=== PATIENT | female | born 2000 | race Hispanic/Latino ===

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

== ENCOUNTER 2024-08-31 12:10 | Emergency (ER) | payer OTHER, SELFPAY ==
--- OUTSIDE RECORDS SUMMARY | 2024-08-31 12:17 | XMS REPORT | Continuity of Care Document ---
Author Name Unknown Address [address] [facility] [address] [place] [address] [facility] [place] Address [address] [facility] [address] [place] [address] Care Team Providers Care Napper Runner Name Role Phone Karri Lanza Primary Care Physician [phone] DEVI ARDON Attending Clinician UnavailDevi Maciel DO Attending Clinician [phone] Aung Osorio Attending Clinician [phone] AUNG DEL ANGEL Attending Clinician Unavaila sonia Doctor Unassigned, [place] Attending Clinician U KARLA Conklin Attending Clinician Unavailable Karla Bautista MD Attending Clinician [phone] DEVI ARDON Admitting Clinician Unavailab AUNG Roberts Admitting Clinician Sukumara ble Payers Payer Name Policy Type Policy Number Effective Date Expirati on Date Source [facility] [id number] 2020 00:00:00 Problems Condition Name Condition Details Condition Category Status Onset Date Resolution Date Last Treatment Date Treating Clinician Comments Source No known active problems No known active problems Disease [facility] Allergies, Adverse Reactions, Alerts Allergy Name Allergy Type Status Severity Reaction(s) Onset Date Inactive Date Treating Clinician Comments Source NO KNOWN ALLERGIE S Drug Class Active [facility] Social History Social Habit Start Date Stop Date Quantity Comments Source Exposure to SARS-CoV-2 (event) 2021-08-17 00:00:00 2021-08-27 17:24:00 Unable to assess [facility] Sex Assigned At 2000 00:00:00 2000 00:00:00 [facility] Smoking Status Start Date Stop Date Source Unknown if ever smoked [facility] Medications Ordered Medication Name Filled Medication Name Start Date Stop Date Current Medication? Ordering Clinician Indication Dosage Frequency Signature (SIG) Comments Components Source TAKE 1 TABLET DAILY. 07-22 00:00: 00 Yes 10 Elliot West TAKE 1 TO 2 TABLETS EVERY 6 HOURS NEEDED FOR ANXIETY. 04-26 00:00: 00 08-27 00:00 :00 No Elliot West TAKE 1 TO 2 TABLETS BY MOUTH EVERY 6 HOURS NEEDED FOR ANXIETY 04-24 00:00: 00 Yes Elliot West ESCITALOPRA M 04-24 00:00: 00 Yes Elliot West BROM/PSE/DM SYP 2021-04 00:00: 00 Yes Elliot West TAKE 1 TABLET BY MOUTH DAILY 2021-04 00:00: 00 Yes Elliot West OSELTAMIVIR 2021-04 00:00: 00 Yes 75 Elliot West TOPIRAMATE TAB 50MG 2021-04 00:00: 00 Yes Elliot West ONDANSETRON TAB 4MG ODT 2021-04 00:00: 00 Yes Elliot West TAKE 1 TABLET BY MOUTH DAILY 2021-04 00:00: 00 Yes Elliot West SUMATRIPTAN 25MG TABLETS 2021-04 00:00: 00 Yes Elliot West HYDROXYZ HCL 2021-04 00:00: 00 Yes 10 Elliot West ONDANSETRON TAB 4MG ODT 2021-04 00:00: 00 No DICYCLOMINE TAB 20MG 2021-04 00:00: 00 Yes Elliot West DICYCLOMINE TAB 20MG 2021-04 00:00: 00 No HYDROcodone -acetaminop hen (NORCO 5) 5-325 mg tablet 1 tablet 17 00:30: 00 08-27 23:30 :00 No 1{tbl} 1 tablet, Oral, ONCE, 1 dose, [facility]27/[facility] 370-500 mL) injection 120 mL 06-18 04:45: 00 06-18 03:34 :00 No [id number] 120mL 120 mL, Intravenou s, ONCE, 1 dose, On Fri06/17/21 at 2245, Routine [facility] ketorolac (TORADOL) injection 30 mg 06-18 03:45: 00 06-18 02:48 :00 No 30mg 30 mg, Slow IV Push, ONCE, 1 dose, On Fri06/17/21 at 2145, 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 [facility] dicyclomine 20 mg tablet 06-17 00:00: 00 06-25 04:59 :00 No [id number] 20mg Take 1 tablet by mouth 4 (four) times daily for 7 days. [facility] medroxyPROG ESTERone (PROVERA) 10 mg tablet 410 00:00: 00 07-30 04:59 :00 No [id number] 10mg Take 1 tablet by mouth 3 (three) times daily for 7 days. [facility] Diflucan 150 mg tablet 11-24 00:00: 00 Yes 1mg Elliot West Diflucan 150 mg tablet 11-24 00:00: 00 No 1mg Diflucan 150 mg tablet 05-18 00:00: 00 Yes 1mg Elliot West Diflucan 150 mg tablet 05-18 00:00: 00 No 1mg Xulane 150 mcg-35 mcg/24 hr transdermal patch 05-17 00:00: 00 Yes 1mcg/24 hr Elliot West omeprazole 20 mg tablet,courtney yed release 05-17 00:00: 00 Yes 1mg Elliot West Xulane 150 mcg-35 mcg/24 hr transdermal patch 05-17 00:00: 00 No 1mcg/24 hr omeprazole 20 mg tablet,courtney yed release 05-17 00:00: 00 No 1mg fluconazole 150 mg tablet 2018-04 0 00:00: 00 Yes [id number] Take one tablet now and take the second tablet after 3 days if symptoms persists [facility] prednisone 20 mg tablet 06-18 00:00: 00 Yes 1mg Elliot West loratadine 10 mg tablet 06-18 00:00: 00 Yes 1mg Elliot West amoxicillin 500 mg capsule 06-18 00:00: 00 Yes 1mg Elliot West Bromfed DM 2 mg-30 mg-10 mg/5 mL syrup 06-18 00:00: 00 Yes 10mg/5 mL Elliot West prednisone 20 mg tablet 06-18 00:00: 00 No 1mg loratadine 10 mg tablet 06-18 00:00: 00 No 1mg amoxicillin 500 mg capsule 06-18 00:00: 00 No 1mg Bromfed DM 2 mg-30 mg-10 mg/5 mL syrup 06-18 00:00: 00 No 10mg/5 mL CALCIUM CARBONATE (MAALOX ORAL) 2015-04 04:45: 12 Yes Take by mouth. [facility] CALCIUM CARBONATE (MAALOX ORAL) 2015-04 22:45: 12 Yes Take by mouth. [facility] ranitidine (ZANTAC) 150 mg tablet 2015-04 00:00: 00 Yes 150mg Take 1 tablet by mouth 2 (two) times daily. [facility] proMETHazin e (PHENERGAN) 25 mg tablet 2015-04 00:00: 00 Yes 25mg Take 1 tablet by mouth every 6 (six) hours as needed for Nausea and Vomiting (N/V). [facility] Immunizations Ordered Immunization Name Filled Immunization Name Date Status Comments Source COVID-19, (Pfizer) mRNA, LNP-S, PF, 30 mcg/0.3 mL dose, alysia-sucrose 2021-07-17 00:00:00 Completed (Old) COVID-19, (Pfizer) mRNA, LNP-S, PF, 30 mcg/0.3 mL dose, alysia-sucrose (Old) COVID-19, (Pfizer) mRNA, LNP-S, PF, 30 mcg/0.3 mL dose, alysia-sucrose 2021-07-17 00:00:00 Completed Elliot West HPV9 2016-02-19 00:00:00 Completed HPV9 HPV9 2016-02-19 00:00:00 Completed Elliot West HPV9 2015-07-14 00:00:00 Completed HPV9 HPV9 2015-07-14 00:00:00 Completed Elliot West HPV9 2014-12-07 00:00:00 Completed meningococcal MCV4P 2014-12-07 00:00:00 Completed Tdap 2014-12-07 00:00:00 Completed HPV9 HPV9 2014-12-07 00:00:00 Completed Elliot West meningococcal MCV4P meningococcal MCV4P 00:00:00 Completed Elliot West Tdap Tdap 2014-12-07 00:00:00 Completed Elliot West Influenza, seasonal, inj 2014-01-04 00:00:00 Completed Influenza, seasonal, inj Influenza, seasonal, inj 2014-01-04 00:00:00 Completed Elliot West Influenza, seasonal, inj 2013-02-08 00:00:00 Completed Influenza, seasonal, inj Influenza, seasonal, inj 2013-02-08 00:00:00 Completed Elliot [place] Influenza, seasonal, inj 2010-06-25 00:00:00 Completed Influenza, seasonal, inj Influenza, seasonal, inj 2010-06-25 00:00:00 Completed Elliot West DTaP 2006-06-18 00:00:00 Completed MMR 2006-06-18 00:00:00 Completed IPV 2006-06-18 00:00:00 Completed varicella 2006-06-18 00:00:00 Completed DTaP DTaP 2006-06-18 00:00:00 Completed Elliot West MMR MMR 2006-06-18 00:00:00 Completed Elliot West IPV IPV 2006-06-18 00:00:00 Completed Elliot West varicella varicella 2006-06-18 00:00:00 Completed Elliot West Hep A, ped/adol, 2 dose 2006-02-12 00:00:00 Completed Hep A, ped/adol, 2 dose Hep A, ped/adol, 2 dose 2006-02-12 00:00:00 Completed Elliot West Hep A, ped/adol, 2 dose 2004-09-12 00:00:00 Completed Pneumococcal conjugate P 2004-09-12 00:00:00 Completed Hep A, ped/adol, 2 dose Hep A, ped/adol, 2 dose 2004-09-12 00:00:00 Completed Elliot West Pneumococcal conjugate P Pneumococcal conjugate P 2004-09-12 00:00:00 Completed Elliot Anastasia Brett DTaP 2004-01-10 00:00:00 Completed DTaP DTaP 2004-01-10 00:00:00 Completed Elliot West Hib (PRP-OMP) 2003-08-02 00:00:00 Completed MMR 2003-08-02 00:00:00 Completed varicella 2003-08-02 00:00:00 Completed Hib (PRP-OMP) Hib (PRP-OMP) 2003-08-02 00:00:00 Completed Elliot West MMR MMR 2003-08-02 00:00:00 Completed Elliot West varicella varicella 2003-08-02 00:00:00 Completed Elliot West Hep B, adolescent or ped 2003-01-06 00:00:00 Completed Hib (PRP-OMP) 2003-01-06 00:00:00 Completed DTaP 2003-01-06 00:00:00 Completed DTaP 2003-01-06 00:00:00 Completed Pneumococcal conjugate P 2003-01-06 00:00:00 Completed DTaP 2003-01-06 00:00:00 Completed DTaP 2003-01-06 00:00:00 Completed DTaP 2003-01-06 00:00:00 Completed DTaP 2003-01-06 00:00:00 Completed IPV 2003-01-06 00:00:00 Completed DTaP 2003-01-06 00:00:00 Completed DTaP 2003-01-06 00:00:00 Completed DTaP 2003-01-06 00:00:00 Completed DTaP 2003-01-06 00:00:00 Completed Hep B, adolescent or ped Hep B, adolescent or ped 2003-01-06 00:00:00 Completed Elliot West Hib (PRP-OMP) Hib (PRP-OMP) 2003-01-06 00:00:00 Completed Elliot West DTaP DTaP 2003-01-06 00:00:00 Completed Elliot West Pneumococcal conjugate P Pneumococcal conjugate P 2003-01-06 00:00:00 Completed Elliot West IPV IPV 2003-01-06 00:00:00 Completed Elliot West DTaP 2002 00:00:00 Completed Hib (PRP-OMP) 2002 00:00:00 Completed IPV 2002 00:00:00 Completed DTaP DTaP 2002 00:00:00 Completed Elliot West Hib (PRP-OMP) Hib (PRP-OMP) 2002 00:00:00 Completed Elliot West IPV IPV 2002 00:00:00 Completed Elliot West DTaP 2002 00:00:00 Completed Hep B, adolescent or ped 2002 00:00:00 Completed Hib (PRP-OMP) 2002 00:00:00 Completed Pneumococcal conjugate P 2002 00:00:00 Completed IPV 2002 00:00:00 Completed DTaP DTaP 2002 00:00:00 Completed Elliot Anastasia Brett Hep B, adolescent or ped Hep B, adolescent or ped 2002 00:00:00 Completed Elloit Anastasia Brett Hib (PRP-OMP) Hib (PRP-OMP) 2002 00:00:00 Completed Elliot West Pneumococcal conjugate P Pneumococcal conjugate P 2002 00:00:00 Completed Elliot Anastasia Brett IPV IPV 2002 00:00:00 Completed Elliot West Hep B, adolescent or ped 2002 00:00:00 Completed Hep B, adolescent or ped Hep B, adolescent or ped 2002 00:00:00 Completed Elliot West Vital Signs Vital Name Observation Time Observation Value Comments S ource Heart rate 2021-08-27 22:55:00 96 /min [facility] Respiratory rate 2021-08-27 22:55:00 15 /min [facility] Oxygen saturation in Arterial blood by Pulse oximetry 2021-08-27 22:55:00 96 /min [facility] Systolic blood pressure 2021-08-27 22:28:00 154 mm[Hg] [facility] Diastolic blood pressure 2021-08-27 22:28:00 118 mm[Hg] [facility] Body temperature 2021-08-27 22:28:00 36.28 Rachell [facility] Body height 2021-08-27 22:28:00 142.2 cm [facility] Body weight 2021-08-27 22:28:00 86.637 kg [facility] BMI 2021-08-27 22:28:00 42.82 kg/m2 [facility] Body mass index (BMI) [Percentile] Per age and sex 2021-08-27 22:28:00 98.86 % [facility] Systolic blood pressure 2021-06-18 05:00:00 110 mm[Hg] [facility] Diastolic blood pressure 2021-06-18 05:00:00 80 mm[Hg] [facility] Heart rate 2021-06-18 05:00:00 88 /[facility] Respiratory rate 2021-06-18 05:00:00 15 /min [facility] Oxygen saturation in Arterial blood by Pulse oximetry 2021-06-18 05:00:00 94 /min [facility] Body temperature 2021-06-18 02:01:55 37.83 Rachell [facility] Body height 2021-06-18 01:54:00 142.2 cm [facility] Body weight 2021-06-18 01:54:00 81.194 kg [facility] BMI 2021-06-18 01:54:00 40.13 kg/m2 [facility] Body mass index (BMI) [Percentile] Per age and sex 2021-06-18 01:54:00 98.60 % [facility] Systolic blood pressure 2020-07-22 20:29:00 145 mm[Hg] [facility] Diastolic blood pressure 2020-07-22 20:29:00 94 mm[Hg] [facility] Heart rate 2020-07-22 20:29:00 101 /min [facility] Body temperature 2020-07-22 20:29:00 36.33 Rachell [facility] Respiratory rate 2020-07-22 20:29:00 18 /min [facility] Body weight 2020-07-22 20:29:00 89.359 kg [facility] Oxygen saturation in Arterial blood by Pulse oximetry 2020-07-22 20:29:00 98 /min [facility] Systolic blood pressure 2020-07-22 20:29:00 145 mm[Hg] [facility] Diastolic blood pressure 2020-07-22 20:29:00 94 mm[Hg] [facility] Heart rate 2020-07-22 20:29:00 101 /min [facility] Body temperature 2020-07-22 20:29:00 36.33 Rachell [facility] Respiratory rate 2020-07-22 20:29:00 18 /min [facility] Body weight 2020-07-22 20:29:00 89.359 kg [facility] Oxygen saturation in Arterial blood by Pulse oximetry 2020-07-22 20:29:00 98 /min [facility] Body height 2020-05-25 20:07:00 144.8 cm [facility] Body weight 2020-05-25 20:07:00 92.987 kg [facility] BMI 2020-05-25 20:07:00 44.36 kg/m2 [facility] Body height 2020-05-25 20:07:00 144.8 cm [facility] Body weight 2020-05-25 20:07:00 92.987 kg [facility] BMI 2020-05-25 20:07:00 44.36 kg/m2 [facility] BP Systolic 2024-07-29 08:21:00 125 mm[Hg] Step hen F Brett BP Diastolic 2024-07-29 08:21:00 85 mm[Hg] Zackary phen F Brett Weight Measured 2024-07-29 08:21:00 224.00 pounds Elliot F Brett Height Measured 2024-07-29 08:21:00 56.10 inches Elliot F Brett Body Temperature 2024-07-29 08:21:00 98.00 degrees Elliot F Brett Heart Rate 2024-07-29 08:21:00 90.00 /min Nikkie en F Brett Respiratory Rate 2024-07-29 08:21:00 18.00 /min Elliot F Brett Heart Rate 2024-07-12 09:28:00 105.00 /min Step hen F Brett Respiratory Rate 2024-07-12 09:28:00 18.00 /min Elliot F Brett BP Systolic 2024-07-12 09:28:00 121 mm[Hg] Step hen F Brett BP Diastolic 2024-07-12 09:28:00 89 mm[Hg] Zackary phen F Brett Weight Measured 2024-07-12 09:28:00 218.60 pounds Elliot F Brett Height Measured 2024-07-12 09:28:00 56.10 inches Elliot F Brett Body Temperature 2024-07-12 09:28:00 98.20 degrees Elliot F Brett BP Systolic 2022-02-16 12:34:00 98 mm[Hg] Step hen F Brett BP Diastolic 2022-02-16 12:34:00 77 mm[Hg] Zackary phen F Brett Weight Measured 2022-02-16 12:34:00 195.00 pounds Elliot F Brett Height Measured 2022-02-16 12:34:00 56.10 inches Elliot F Brett Body Temperature 2022-02-16 12:34:00 98.10 degrees Elliot F Brett Heart Rate 2022-02-16 12:34:00 67.00 /min Nikkie en F Brett Respiratory Rate 2022-02-16 12:34:00 17.00 /min Elliot F Brett BP Systolic 2020-11-24 08:18:00 118 mm[Hg] Step hen F Brett BP Diastolic 2020-11-24 08:18:00 81 mm[Hg] Zackary phen F Brett Weight Measured 2020-11-24 08:18:00 195.40 pounds Elliot F Brett Height Measured 2020-11-24 08:18:00 56.10 inches Elliot F Brett Body Temperature 2020-11-24 08:18:00 98.10 degrees Elliot F Brett Heart Rate 2020-11-24 08:18:00 71.00 /min Nikkie en F Brett Respiratory Rate 2020-11-24 08:18:00 Elliot F Brett BP Systolic 2020-06-20 09:05:00 133 mm[Hg] Step hen F Brett BP Diastolic 2020-06-20 09:05:00 97 mm[Hg] Zackary phen F Brett Weight Measured 2020-06-20 09:05:00 198.20 pounds Elliot F Brett Height Measured 2020-06-20 09:05:00 56.00 inches Elliot F Brett Body Temperature 2020-06-20 09:05:00 98.70 degrees Elliot F Brett Heart Rate 2020-06-20 09:05:00 94.00 /min Nikkie en F Brett Respiratory Rate 2020-06-20 09:05:00 Elliot F Brett BP Systolic 2019-11-25 15:25:00 100 mm[Hg] Step hen F Brett BP Diastolic 2019-11-25 15:25:00 62 mm[Hg] Zackary phen F Brett Weight Measured 2019-11-25 15:25:00 202.20 pounds Elliot F Brett Height Measured 2019-11-25 15:25:00 56.00 inches Elliot F Brett Body Temperature 2019-11-25 15:25:00 99.10 degrees Elliot F Brett Heart Rate 2019-11-25 15:25:00 99.00 /min Nikkie en F Brett Respiratory Rate 2019-11-25 15:25:00 Elliot F Brett BP Systolic 2019-05-17 11:53:00 113 mm[Hg] Step hen F Brett BP Diastolic 2019-05-17 11:53:00 76 mm[Hg] Zackary phen F Brett Weight Measured 2019-05-17 11:53:00 199.60 pounds Elliot F Brett Height Measured 2019-05-17 11:53:00 56.00 inches Elliot F Brett Body Temperature 2019-05-17 11:53:00 97.80 degrees Elliot F Brett Heart Rate 2019-05-17 11:53:00 72.00 /min Nikkie en F Brett Respiratory Rate 2019-05-17 11:53:00 17.00 /min Elliot F Brett BP Systolic 2017-12-24 14:46:00 129 mm[Hg] Step hen F Brett BP Diastolic 2017-12-24 14:46:00 91 mm[Hg] Zackary phen F Brett Weight Measured 2017-12-24 14:46:00 Elliot F Brett Height Measured 2017-12-24 14:46:00 Elliot F Brett Body Temperature 2017-12-24 14:46:00 Elliot F Brett Heart Rate 2017-12-24 14:46:00 Nikkie en F Brett Respiratory Rate 2017-12-24 14:46:00 Elliot F Brett BP Systolic 2017-12-24 14:45:00 145 mm[Hg] Step hen F Brett BP Diastolic 2017-12-24 14:45:00 98 mm[Hg] Zackary phen F Brett Weight Measured 2017-12-24 14:45:00 176.00 pounds Elliot F Brett Height Measured 2017-12-24 14:45:00 57.50 inches Elliot F Brett Body Temperature 2017-12-24 14:45:00 98.00 degrees Elliot F Brett Heart Rate 2017-12-24 14:45:00 77.00 /min Nikkie en F Brett Respiratory Rate 2017-12-24 14:45:00 16.00 /min Elliot Anastasia West BP Systolic 2017-01-04 15:34:00 121 mm[Hg] Step hen F Brett BP Diastolic 2017-01-04 15:34:00 87 mm[Hg] Zackary phen F Brett Weight Measured 2017-01-04 15:34:00 188.00 pounds Elliot West Height Measured 2017-01-04 15:34:00 57.00 inches Elliot F Brett Body Temperature 2017-01-04 15:34:00 98.60 degrees Elliot Anastasia West Heart Rate 2017-01-04 15:34:00 84.00 /min Nikkie en F Brett Respiratory Rate 2017-01-04 15:34:00 18.00 /min Elliot F Brett BP Systolic 2016-06-18 13:30:00 Step hen F Brett BP Diastolic 2016-06-18 13:30:00 Zackary phen Anastasia West Weight Measured 2016-06-18 13:30:00 Elliot F Brett Height Measured 2016-06-18 13:30:00 Elliot Anastasia West Body Temperature 2016-06-18 13:30:00 Elliot F Brett Heart Rate 2016-06-18 13:30:00 Nikkie en F Brett Respiratory Rate 2016-06-18 13:30:00 Elliot Anastasia West BP Systolic 2016-06-18 13:22:00 121 mm[Hg] BP Diastolic 2016-06-18 13:22:00 78 mm[Hg] Weight Measured 2016-06-18 13:22:00 175.20 pounds Height Measured 2016-06-18 13:22:00 56.69 inches Body Temperature 2016-06-18 13:22:00 99.40 degrees Heart Rate 2016-06-18 13:22:00 108.00 /min Respiratory Rate 2016-06-18 13:22:00 17.00 /min Procedures Procedure Date / Time Performed Performing Clinicia n Source CT TRAUMA CERVICAL SPINE WO CONTRAST 2021-08-27 23:05:13 Devi Ardon [facility] NOTICE OF PRIVACY PRACTICES 2021-08-27 22:44:15 Doctor Unassigned, [place] [facility] XR CHEST 1 VW 2021-08-27 22:43:34 Devi Ardon [facility] CONSENT/REFUSAL FOR DIAGNOSIS AND TREATMENT 2021-08-27 22:42:41 Doctor Unassigned, [place] [facility] CT ABDOMEN PELVIS W CONTRAST 2021-06-18 03:41:41 Aung Del Angel [facility] POCT TEST 2021-06-18 02:50:00 Erum Del Angel [facility] LIPASE 2021-06-18 02:48:00 [facility] METABOL[facility] (36377) 2021-06-18 02:48:00 Aung Del Angel [facility] CBC WITH DIFF 2021-06-18 02:48:00 Aung Del Angel [facility] COVID-19 (ID NOW RAPID TESTING) 2021-06-18 02:48:00 Aung Del Angel [facility] URINALYSIS 2021-06-18 02:11:00 Devi Ardon Un [facility] NOTICE OF PRIVACY PRACTICES 2021-06-18 01:42:34 Doctor Unassigned, [place] [facility] CONSENT/REFUSAL FOR DIAGNOSIS AND TREATMENT 2021-06-18 01:40:12 Doctor Unassigned, [place] [facility] NOTICE OF PRIVACY PRACTICES 2020-07-22 21:19:31 Doctor Unassigned, [place] [facility] ASSIGNMENT OF BENEFITS 2020-07-22 21:17:22 Docto r Unassigned, [place] [facility] POCT TEST 2020-07-22 20:54:00 Tiki Ardon ra [facility] CONSENT/REFUSAL FOR DIAGNOSIS AND TREATMENT 2020-07-22 20:21:38 Doctor Unassigned, [place] [facility] ASSIGNMENT OF BENEFITS 2020-05-25 20:03:09 Docto r Unassigned, [place] [facility] Plan of Care Planned Activity Planned Date Details Comments Source Goal Plan of Care Note [code = 40748-6] Goal Plan of Care Note [code = 36193-4] Goal Plan of Care Note [code = 23543-3] Goal Plan of Care Note [code = 18697-8] Goal Plan of Care Note [code = 80035-3] Goal Plan of Care Note [code = 63906-8] Goal Plan of Care Note [code = 13512-5] Goal Plan of Care Note [code = 87411-9] Goal Plan of Care Note [code = 85000-4] Goal Plan of Care Note [code = 30080-1] Goal Plan of Care Note [code = 65488-0] Goal Plan of Care Note [code = 18884-1] Goal Plan of Care Note [code = 76078-8] Goal Plan of Care Note [code = 75009-9] Goal Plan of Care Note [code = 98320-0] Goal Plan of Care Note [code = 69627-1] Goal Plan of Care Note [code = 96619-2] Goal Plan of Care Note [code = 35664-9] Goal Plan of Care Note [code = 07890-9] Goal Plan of Care Note [code = 48746-6] Goal Plan of Care Note [code = 82785-9] Goal Plan of Care Note [code = 74554-9] Goal Plan of Care Note [code = 57553-5] Goal Plan of Care Note [code = 07112-5] Goal Plan of Care Note [code = 17919-8] Goal Plan of Care Note [code = 47830-4] Goal Plan of Care Note [code = 22019-6] Goal Plan of Care Note [code = 35755-6] Encounters Start Date/Time End Date/Time Encounter Type Admission Type Attending [facility] Care Department Encounter ID Source 2021-02-11 12:02:45 Emergency [facility] [id number] [facility] 2024-08-03 13:03:47 2024-08-03 13:03:[address] [facility] [id number] Elliot Anastasia Brett 2024-07-29 08:12:11 2024-07-29 08:12:[address] [facility] [id number] Elliot Anastasia Brett 2024-07-29 00:00:00 2024-07-29 00:00:[address] [facility] [id number] Elliot Anastasia Brett 2024-07-12 10:33:35 2024-07-12 10:33:[address] [facility] [id number] Elliot West 2024-07-12 00:00:00 2024-07-12 00:00:[address] [facility] [id number] Elliot West 2022-02-21 13:57:37 2022-02-21 13:57:[address] [facility] [id number] Elliot West 2022-02-16 12:36:14 2022-02-16 12:36:14 Outpatient [facility] [id number] Elliot West 2022-02-16 00:00:00 2022-02-16 00:00:00 Outpatient Visit [id number] 2021-08-27 17:28:00 2021-08-27 18:42:00 Emergency X DEVI ARDON [facility] [[email or web address] ERT [id number] [facility] 2021-08-27 17:28:00 2021-08-27 18:42:00 Emergency Devi Ardon [facility] [id number] [facility] 2021-06-17 20:06:00 2021-06-17 23:30:00 Emergency Aung Del Angel [facility] [id number] [facility] 2021-06-17 20:06:00 2021-06-17 23:30:00 Emergency X AUNG DEL ANGEL [facility] [[email or web address]] ERT [id number] [facility] 2020-07-22 15:43:00 2020-07-22 16:32:00 Emergency Devi Ardon [facility] [id number] 2020-07-22 15:43:00 2020-07-22 16:32:00 Emergency Devi Ardon [facility] [id number] [facility] 2020-07-22 00:00:00 2020-07-22 00:00:00 Orders Only Doctor Unassigned, [place] [facility] [id number] [facility] 2020-07-22 00:00:00 2020-07-22 00:00:00 Orders Only Doctor Unassigned, [facility] 1.2840.114 350.1.13.10 4.2.7.2.686 [id number] [id number] 2020-05-25 14:45:00 2020-05-25 14:45:00 Outpatient R KARLA BAUTISTA [facility] [id number] [facility] 2020-05-25 14:03:35 2020-05-25 14:18:35 Office Visit Karla Bautista [facility] 1.2840.114 350.1.13.10 4.2.7.2.686 [id number] [facility] 2020-05-25 14:03:35 2020-05-25 14:18:35 Office Visit Karla Bautista [facility] 1.2840.114 350.1.13.10 4.2.7.2.686 [id number] 2020-05-25 00:00:00 2020-05-25 00:00:00 Orders Only Doctor Unassigned, [facility] 1.2840.114 350.1.13.10 4.2.7.2.686 [id number] [facility] 2020-05-25 00:00:00 2020-05-25 00:00:00 Letter (Out) Doctor Unassigned, [facility] [id number] 350.1.13.10 4.2.7.2.686 [id number] [facility] Results Test Description Test Time Test Comments Results Result Co mments Source Elliot WestCHLAMYDIA/N. GONORRHOEAE RNA, [id number] 00:00:00* Test Item Value Reference Range Interpretation Comme nts CHLAMYDIA TRACHOMATIS RNA, T MA, UROGENITAL (test code = 26604-8) NOT DETECTED NEISSERIA GONORRHOEAE RNA, T MA, UROGENITAL (test code = 44180-5) NOT DETECTED Elliot WestBV/VAGINITIS PANEL DNA [id number] 00:00:00* Test Item Value Reference Range Interpretation Comme nts TRICHOMONAS: (test code = 6568-0) NOT DETECTED GARDNERELLA: (test code = 6410-5) NOT DETECTED MICHELE: (test code = 30178-3) NOT DETECTED Elliot WestVITAMIN D, 25 [id number] 00:00:00* Test Item Value Reference Range Interpretation Comme [facility] VITAMIN D, 25 OH (test code = 4958) 28 NG/ML Elliot WestVITAMIN D, 25 [id number] 00:00:00* Test Item Value Reference Range Interpretation Comme [facility] VITAMIN D, 25 OH (test code = 4958) 28 NG/ML Elliot WestCOMPREHENSIVE METABOLIC [id number] 00:00:00* Test Item Value Reference Range Interpretation Comme nts GLUCOSE (test code = 2217) 104 MG/DL BUN (test code = 2208) 12 MG/DL CREATININE (test code = 2214) 0.64 MG/DL eGFR (2020 CKD-EPI) (test code = 39306) 130 ML/MIN/1.73 CALC BUN/CREAT (test code = 2235) 19 RATIO SODIUM (test code = 2231) 141 MEQ/L POTASSIUM (test code = 2228) 4.8 MEQ/L CHLORIDE (test code = 2215) 105 MEQ/L CARBON DIOXIDE (test code = 2206) 24 MEQ/L CALCIUM (test code = 2209) 9.7 MG/DL PROTEIN, TOTAL (test code = 2229) 7.0 G/DL ALBUMIN (test code = 2201) 4.6 G/DL CALC GLOBULIN (test code = 2240) 2.4 G/DL CALC A/G RATIO (test code = 2234) 1.9 RATIO BILIRUBIN, TOTAL (test code = 2207) <0.2 MG/DL ALKALINE PHOSPHATASE (test code = 2204) 59 U/L AST (test code = 2218) 31 U/L ALT (test code = 2219) 51 U/L Elliot WestLIPID [id number] 00:00:00* Test Item Value Reference Range Interpretation Comme nts CHOLESTEROL (test code = 2210) 142 MG/DL TRIGLYCERIDES (test code = 2232) 80 MG/DL HDL CHOLESTEROL (test code = 2220) 49 MG/DL CALC LDL CHOL (test code = 2237) 77 MG/DL RISK RATIO LDL/HDL (test cod e = 2238) 1.57 RATIO Elliot WestTSH, THIRD [id number] 00:00:00* Test Item Value Reference Range Interpretation Comme nts TSH, THIRD GENERATION (test code = 2821) 2.110 UIU/ML Elliot WestCOMPREHENSIVE METABOLIC [id number] 00:00:00* Test Item Value Reference Range Interpretation Comme nts GLUCOSE (test code = 2217) 104 MG/DL BUN (test code = 2208) 12 MG/DL CREATININE (test code = 2214) 0.64 MG/DL eGFR (2020 CKD-EPI) (test code = 13598) 130 ML/MIN/1.73 CALC BUN/CREAT (test code = 2235) 19 RATIO SODIUM (test code = 2231) 141 MEQ/L POTASSIUM (test code = 2228) 4.8 MEQ/L CHLORIDE (test code = 2215) 105 MEQ/L CARBON DIOXIDE (test code = 2206) 24 MEQ/L CALCIUM (test code = 2209) 9.7 MG/DL PROTEIN, TOTAL (test code = 2229) 7.0 G/DL ALBUMIN (test code = 2201) 4.6 G/DL CALC GLOBULIN (test code = 2240) 2.4 G/DL CALC A/G RATIO (test code = 2234) 1.9 RATIO BILIRUBIN, TOTAL (test code = 2207) <0.2 MG/DL ALKALINE PHOSPHATASE (test code = 2204) 59 U/L AST (test code = 2218) 31 U/L ALT (test code = 2219) 51 U/L Elliot WestLIPID [id number] 00:00:00* Test Item Value Reference Range Interpretation Comme nts CHOLESTEROL (test code = 2210) 142 MG/DL TRIGLYCERIDES (test code = 2232) 80 MG/DL HDL CHOLESTEROL (test code = 2220) 49 MG/DL CALC LDL CHOL (test code = 2237) 77 MG/DL RISK RATIO LDL/HDL (test cod e = 2238) 1.57 RATIO Elliot WestTSH, THIRD [id number] 00:00:00* Test Item Value Reference Range Interpretation Comme allyn TSH, THIRD GENERATION (test code = 2821) 2.110 UIU/ML Elliot WestHEMOGLOBIN [id number] 00:00:00* Test Item Value Reference Range Interpretation Comme allyn HEMOGLOBIN A1c (test code = 41579) 5.5 % Elliot WestCBC W/AUTO [id number] 00:00:00* Test Item Value Reference Range Interpretation Comme nts WBC (test code = 1001) 8.5 K/UL RBC (test code = 1002) 4.76 M/UL HEMOGLOBIN (test code = 1003) 14.1 G/DL HEMATOCRIT (test code = 1004) 41.8 % MCV (test code = 1005) 87.8 fL MCH (test code = 1006) 29.6 PG MCHC (test code = 1007) 33.7 G/DL RDW (test code = 1038) 12.7 % NEUTROPHILS (test code = 1008) 49.8 % LYMPHOCYTES (test code = 1010) 40.3 % MONOCYTES (test code = 1011) 7.5 % EOSINOPHILS (test code = 1012) 1.8 % BASOPHILS (test code = 1013) 0.4 % IMMATURE GRANULOCYTES (test code = 1036) 0.2 % NUCLEATED RBCS (test code = 1065) 0.0 /100WBC'S PLATELET COUNT (test code = 1015) 347 K/UL ABSOLUTE NEUTROPHILS (test c ode = 1066) 4.26 K/UL ABSOLUTE LYMPHOCYTES (test c ode = 1067) 3.44 K/UL ABSOLUTE MONOCYTES (test cod e = 1068) 0.64 K/UL ABSOLUTE EOSINOPHILS (test c ode = 1040) 0.15 K/UL ABSOLUTE BASOPHILS (test cod e = 1069) 0.03 K/UL ABS IMMATURE GRANULOCYTES (t est code = 1020) 0.02 K/UL ABS NUCLEATED RBCS (test cod e = 75758) 0.00 K/UL Elliot WestHEMOGLOBIN [id number] 00:00:00* Test Item Value Reference Range Interpretation Comme nts HEMOGLOBIN A1c (test code = 15448) 5.5 % Elliot WestCBC W/AUTO [id number] 00:00:00* Test Item Value Reference Range Interpretation Comme nts WBC (test code = 1001) 8.5 K/UL RBC (test code = 1002) 4.76 M/UL HEMOGLOBIN (test code = 1003) 14.1 G/DL HEMATOCRIT (test code = 1004) 41.8 % MCV (test code = 1005) 87.8 fL MCH (test code = 1006) 29.6 PG MCHC (test code = 1007) 33.7 G/DL RDW (test code = 1038) 12.7 % NEUTROPHILS (test code = 1008) 49.8 % LYMPHOCYTES (test code = 1010) 40.3 % MONOCYTES (test code = 1011) 7.5 % EOSINOPHILS (test code = 1012) 1.8 % BASOPHILS (test code = 1013) 0.4 % IMMATURE GRANULOCYTES (test code = 1036) 0.2 % NUCLEATED RBCS (test code = 1065) 0.0 /100WBC'S PLATELET COUNT (test code = 1015) 347 K/UL ABSOLUTE NEUTROPHILS (test c ode = 1066) 4.26 K/UL ABSOLUTE LYMPHOCYTES (test c ode = 1067) 3.44 K/UL ABSOLUTE MONOCYTES (test cod e = 1068) 0.64 K/UL ABSOLUTE EOSINOPHILS (test c ode = 1040) 0.15 K/UL ABSOLUTE BASOPHILS (test cod e = 1069) 0.03 K/UL ABS IMMATURE GRANULOCYTES (t est code = 1020) 0.02 K/UL ABS NUCLEATED RBCS (test cod e = 15868) 0.00 K/UL Elliot Nogueira. METABOLIC PANEL (59151)2021-06-18 03:11:48* Test Item Value Reference Range Interpretation Comme nts NA (test code = 8023113721) 135 mmol/L 135-145 K (test code = 0810093011) 4.2 mmol/L 3.5-5.0 CL (test code = 3845412633) 100 mmol/L 98-108 CO2 TOTAL (test code = 9594681609) 25 mmol/L 23-31 AGAP (test code = 3142259759) 2-16 BUN (test code = 0928137305) 13 mg/dL 7-23 GLUCOSE (test code = 1905118656) 83 mg/dL 70-110 CREATININE (test code = 1555410308) 0.52 mg/dL 0.50-1.04 TOTAL BILI (test code = 7897912474) 0.5 mg/dL 0.1-1.1 CALCIUM (test code = 7357350479) 8.7 mg/dL 8.6-10.6 T PROTEIN (test code = 3508084669) 6.8 g/dL 6.3-8.2 ALBUMIN (test code = 2166956274) 4.4 g/dL 3.5-5.0 ALK PHOS (test code = 8561382426) 52 U/L 34-122 ALTv (test code = 1742-6) 21 U/L 5-35 AST(SGOT) (test code = 6839219891) 29 U/L 13-40 eGFR (test code = 8268679066) mL/min/1.73m2 DONY (test code = DONY) Association of Glomerular Filtration Rate (GFR) and Staging of Kidney Disease* + + +- +| GFR (mL/min/1.73 m2) ?| With Kidney Damage ?| ?Without Kidney Damage+ ------+ ----+ ------+| ?>90 ?| ?Stage one ?| ? Normal ?+ -+ + -+| ?60-89 ?| ?Stage two ?| ? Decreased GFR ? + + +- +| ?30-59 ?| ?Stage three ?| ? Stage three ? + + +- +| ?15-29 ?| ?Stage four ? | ? Stage four ?+ -+ + -+| ?<15 (or dialysis) ? ?| ?Stage five ? | ? Stage five ?+ -+ + -+ *Each stage assumes the associated GFR level has been in effect for at least three months. ?Stages 1 to 5, with or without kidney disease, indicate chronic kidney disease. Notes: Determination of stages one and two (with eGFR >59mL/min/1.73 m2) requires estimation of kidney damage for at least three months as defined by structural or functional abnormalities of the kidney, manifested by either:Pathological abnormalities or Markers of kidney damage (including abnormalities in the composition of the blood or urine or abnormalities in imaging tests). [facility] 03:11:08* Test Item Value Reference Range Interpretation Comme nts LIPASE (test code = 4277532353) 60 U/L 0-220 Lab Interpretation (test cod e = 24711-1) Normal [facility] WITH [id number] 02:57:08* Test Item Value Reference Range Interpretation Comme nts WBC (test code = 6690-2) See_Comment H [Automated [employer]] The system which generated this result transmitted reference range: 4.30 - 11.10 10*3/?L. The reference range was not used to interpret this result as normal/abnormal. RBC (test code = 789-8) See_Comment [[employer]] The system which generated this result transmitted reference range: 3.93 - 5.25 10*6/?L. The reference range was not used to interpret this result as normal/abnormal. HGB (test code = 718-7) 13.1 g/dL 11.6-15.0 HCT (test code = 4544-3) 38.2 % 35.7-45.2 MCV (test code = 787-2) 90.1 fL 80.6-95.5 MCH (test code = 785-6) 30.9 pg 25.9-32.8 MCHC (test code = 786-4) 34.3 g/dL 31.6-35.1 RDW-SD (test code = 81850-8) 39.0 fL 39.0-49.9 RDW-CV (test code = 788-0) 11.9 % 12.0-15.5 L PLT (test code = 777-3) See_Comment [Automated messa ge] The system which generated this result transmitted reference range: 166 - 358 10*3/?L. The reference range was not used to interpret this result as normal/abnormal. MPV (test code = 85723-5) 10.6 fL 9.5-12.9 NRBC/100 WBC (test code = 0014711276) See_Comment [[facility]] The system which generated this result transmitted reference range: 0.0 - 10.0 /100 WBCs. The reference range was not used to interpret this result as normal/abnormal. NRBC x10^3 (test code = 9628018279) <0.01 See_Comment [Automated messa ge] The system which generated this result transmitted reference range: 10*3/?L. The reference range was not used to interpret this result as normal/abnormal. GRAN MAT (NEUT) % (test code = 770-8) 72.9 % IMM GRAN % (test code = 1841857417) 0.50 % LYMPH % (test code = 736-9) 18.9 % MONO % (test code = 5905-5) 6.4 % EOS % (test code = 713-8) 1.0 % BASO % (test code = 706-2) 0.3 % GRAN MAT x10^3(ANC) (test code = 4136144479) 9.60 10*3/uL 1.88-7.09 H IMM GRAN x10^3 (test code = 4367535776) 0.06 10*3/uL 0.00-0.06 LYMPH x10^3 (test code = 731-0) 2.48 10*3/uL 1.32-3.29 MONO x10^3 (test code = 742-7) 0.84 10*3/uL 0.33-0.92 EOS x10^3 (test code = 711-2) 0.13 10*3/uL 0.03-0.39 BASO x10^3 (test code = 704-7) 0.04 10*3/uL 0.01-0.07 Lab Interpretation (test code = 75093-1) [facility] [id number] 02:50:00* Test Item Value Reference Range Interpretation Comme nts POCT PREG (test code = 1605) negative On board controls acceptable with C Line (test code = 3574) present POCT PREG LOT # (test code = 3575) [id number] POCT PREG TEST DATE ( test code = 3576) 2022-06-11 Lab Interpretation (test cod e = 12013-4) Normal [facility]GC AND CHLAMYDIA, AMPLIFIED, [id number] 00:00:00* Test Item Value Reference Range Interpretation Comme nts GONORRHEA, NAAT (test code = 84075) NEGATIVE CHLAMYDIA, NAAT (test code = 35750) NEGATIVE Elliot F AustinGC AND CHLAMYDIA, AMPLIFIED, [id number] 00:00:00* Test Item Value Reference Range Interpretation Comme nts GONORRHEA, NAAT (test code = 00961) NEGATIVE CHLAMYDIA, NAAT (test code = 51423) NEGATIVE Elliot F AustinGC AND CHLAMYDIA, AMPLIFIED, [id number] 00:00:00* Test Item Value Reference Range Interpretation Comme nts GONORRHEA, NAAT (test code = 25826) NEGATIVE CHLAMYDIA, NAAT (test code = 43182) NEGATIVE CULTURE, URINE [ADDED]2020-11-26 00:00:00* Test Item Value Reference Range Interpretation Comme nts CULTURE, URINE (test code = 71398) SPECIMEN NUMBER: [id number] Elliot F AustinCULTURE, URINE [ADDED]2020-11-26 00:00:00* Test Item Value Reference Range Interpretation Comme nts CULTURE, URINE (test code = 69072) SPECIMEN NUMBER: [id number] Elliot F AustinCULTURE, URINE [ADDED]2020-11-26 00:00:00* Test Item Value Reference Range Interpretation Comme nts CULTURE, URINE (test code = 94338) SPECIMEN NUMBER: [id number] ACUTE HEPATITIS [id number] 00:00:00* Test Item Value Reference Range Interpretation Comme nts HEPATITIS A IgM (test code = 04938) NON-REACTIVE HEPATITIS B CORE IgM (test c ode = 4644) NON-REACTIVE HEPATITIS B SURF AG (test co de = 2739) NON-REACTIVE HEPATITIS C ANTIBODY (test c ode = 4675) NON-REACTIVE INTERPRETATION HEPATITIS A: (test code = 2552) (NOTE) INTERPRETATION HEPATITIS B: (test code = 11780) (NOTE) INTERPRETATION HEPATITIS C: (test code = 32688) (NOTE) Elliot WestHIV AB/AG COMBO RFLX [id number] 00:00:00* Test Item Value Reference Range Interpretation Comme nts HIV 1/2 4TH GEN, RFLX CONF ( test code = 3514) NON-REACTIVE Elliot Oconnor [id number] 00:00:00* Test Item Value Reference Range Interpretation Comme nts RPR RESULT (test code = 3501) NON-REACTIVE RPR TITER (test code = 3500) NOT INDIC. TITER Elliot WestVAGINAL PATHOGENS DNA [id number] 00:00:00* Test Item Value Reference Range Interpretation Comme nts MICHELE SPECIES (test code = 76611) NEGATIVE G. VAGINALIS (test code = 57374) NEGATIVE T. VAGINALIS (test code = 76610) NEGATIVE Elliot WestHEMOGLOBIN [id number] 00:00:00* Test Item Value Reference Range Interpretation Comme nts HEMOGLOBIN A1c (test code = 54032) 5.9 % Elliot WestACUTE HEPATITIS [id number] 00:00:00* Test Item Value Reference Range Interpretation Comme nts HEPATITIS A IgM (test code = 50955) NON-REACTIVE HEPATITIS B CORE IgM (test c ode = 4644) NON-REACTIVE HEPATITIS B SURF AG (test co de = 2739) NON-REACTIVE HEPATITIS C ANTIBODY (test c ode = 4675) NON-REACTIVE INTERPRETATION HEPATITIS A: (test code = 2552) (NOTE) INTERPRETATION HEPATITIS B: (test code = 11251) (NOTE) INTERPRETATION HEPATITIS C: (test code = 14520) (NOTE) Elliot WestHIV AB/AG COMBO RFLX [id number] 00:00:00* Test Item Value Reference Range Interpretation Comme nts HIV 1/2 4TH GEN, RFLX CONF ( test code = 3514) NON-REACTIVE Elliot Oconnor [id number] 00:00:00* Test Item Value Reference Range Interpretation Comme nts RPR RESULT (test code = 3501) NON-REACTIVE RPR TITER (test code = 3500) NOT INDIC. TITER Elliot Oconnor AustinHEMOGLOBIN [id number] 00:00:00* Test Item Value Reference Range Interpretation Comme nts HEMOGLOBIN A1c (test code = 11752) 5.9 % ACUTE HEPATITIS [id number] 00:00:00* Test Item Value Reference Range Interpretation Comme nts HEPATITIS A IgM (test code = 57466) NON-REACTIVE HEPATITIS B CORE IgM (test c ode = 4644) NON-REACTIVE HEPATITIS B SURF AG (test co de = 2739) NON-REACTIVE HEPATITIS C ANTIBODY (test c ode = 4675) NON-REACTIVE INTERPRETATION HEPATITIS A: (test code = 2552) (NOTE) INTERPRETATION HEPATITIS B: (test code = 74958) (NOTE) INTERPRETATION HEPATITIS C: (test code = 32672) (NOTE) HIV AB/AG COMBO RFLX [id number] 00:00:00* Test Item Value Reference Range Interpretation Comme nts HIV 1/2 4TH GEN, RFLX CONF ( test code = 3514) NON-REACTIVE [id number] 00:00:00* Test Item Value Reference Range Interpretation Comme nts RPR RESULT (test code = 3501) NON-REACTIVE RPR TITER (test code = 3500) NOT INDIC. TITER VAGINAL PATHOGENS DNA [id number] 00:00:00* Test Item Value Reference Range Interpretation Comme nts MICHELE SPECIES (test code = 20370) NEGATIVE G. VAGINALIS (test code = 92897) NEGATIVE T. VAGINALIS (test code = 28281) NEGATIVE VAGINAL PATHOGENS DNA [id number] 00:00:00* Test Item Value Reference Range Interpretation Comme nts MICHELE SPECIES (test code = 27182) NEGATIVE G. VAGINALIS (test code = 99568) NEGATIVE T. VAGINALIS (test code = 20712) NEGATIVE Elliot Oconnor AustinHEMOGLOBIN [id number] 00:00:00* Test Item Value Reference Range Interpretation Comme nts HEMOGLOBIN A1c (test code = 95434) 5.9 % Elliot Oconnor AustinPOCT [id number] 20:54:00* Test Item Value Reference Range Interpretation Comme nts POCT PREG (test code = 1605) negative On board controls acceptable with C Line (test code = 3574) present Lab Interpretation (test cod e = 64100-3) Normal [facility]17-HYDROXYPROGESTERONE RESPONSE TO ACTH [id number] 00:00:00* Test Item Value Reference Range Interpretation Comme nts 17-OH PROGESTERONE- BASELINE (test code = 90901-8) 23 ng/dL 17-OH PROGESTERONE- 60 MINUT ES (test code = 42442-9) 34 ng/dL Elliot F Lcpzms71-LVIVPQNFNXNBCOQWYJJ RESPONSE TO ACTH [id number] 00:00:00* Test Item Value Reference Range Interpretation Comme nts 17-OH PROGESTERONE- BASELINE (test code = 52018-9) 23 ng/dL 17-OH PROGESTERONE- 60 MINUT ES (test code = 87270-9) 34 ng/dL Elliot F Aodtrb49-ZQKJPWHLHCEUKNAJOTX RESPONSE TO ACTH [id number] 00:00:00* Test Item Value Reference Range Interpretation Comme nts 17-OH PROGESTERONE- BASELINE (test code = 55522-8) 23 ng/dL 17-OH PROGESTERONE- 60 MINUT ES (test code = 91671-0) 34 ng/dL CBC (INCLUDES DIFF/PLT)2020-06-24 00:00:00* Test Item Value Reference Range Interpretation Comme nts WHITE BLOOD CELL COUNT (test code = 6690-2) 10.0 Thousand/uL RED BLOOD CELL COUNT (test code = 789-8) 4.57 Million/uL HEMOGLOBIN (test code = 718-7) 13.9 g/dL HEMATOCRIT (test code = 4544-3) 40.6 % MCV (test code = 787-2) 88.8 fL MCH (test code = 785-6) 30.4 pg MCHC (test code = 786-4) 34.2 g/dL RDW (test code = 788-0) 12.3 % PLATELET COUNT (test code = 777-3) 359 Thousand/uL MPV (test code = 776-5) 10.9 fL ABSOLUTE NEUTROPHILS (test code = 751-8) 6100 cells/uL ABSOLUTE BAND NEUTROPHILS (test code = 05530-9) DNR cells/uL ABSOLUTE METAMYELOCYTES (test code = 05645-8) DNR cells/uL ABSOLUTE MYELOCYTES (test code = 22683-8) DNR cells/uL ABSOLUTE PROMYELOCYTES (test code = 27418-2) DNR cells/uL ABSOLUTE LYMPHOCYTES (test code = 731-0) 3130 cells/uL ABSOLUTE MONOCYTES (test code = 742-7) 630 cells/uL ABSOLUTE EOSINOPHILS (test code = 711-2) 100 cells/uL ABSOLUTE BASOPHILS (test code = 704-7) 40 cells/uL ABSOLUTE BLASTS (test code = 87916-6) DNR cells/uL ABSOLUTE NUCLEATED RBC (test code = 10407-1) DNR cells/uL NEUTROPHILS (test code = 770-8) 61 % BAND NEUTROPHILS (test code = 764-1) DNR % METAMYELOCYTES (test code = 740-1) DNR % MYELOCYTES (test code = 749-2) DNR % PROMYELOCYTES (test code = 783-1) DNR % LYMPHOCYTES (test code = 736-9) 31.3 % REACTIVE LYMPHOCYTES (test code = 07300-8) DNR % MONOCYTES (test code = 5905-5) 6.3 % EOSINOPHILS (test code = 713-8) 1.0 % BASOPHILS (test code = 706-2) 0.4 % BLASTS (test code = 709-6) DNR % NUCLEATED RBC (test code = 80595-5) DNR /100WBC COMMENT(S) (test code = 8251-1) DNR Elliot WestFSH AND [id number] 00:00:00* Test Item Value Reference Range Interpretation Comme nts FSH (test code = 30220-3) 7.9 mIU/mL LH (test code = 16778-0) 9.4 mIU/mL Elliot [id number] 00:00:00* Test Item Value Reference Range Interpretation Comme nts PROLACTIN (test code = 2842-3) 6.6 ng/mL Elliot WestDHEA, LC/MS/[id number] 00:00:00* Test Item Value Reference Range Interpretation Comme nts DHEA, UNCONJUGATED (test cod e = 2196-4) 224 ng/dL Elliot WestHEMOGLOBIN [id number] 00:00:00* Test Item Value Reference Range Interpretation Comme nts HEMOGLOBIN A1c (test code = 4548-4) 5.7 %oftotalHgb Elliot WestCOMPREHENSIVE METABOLIC [id number] 00:00:00* Test Item Value Reference Range Interpretation Comme nts GLUCOSE (test code = 2345-7) 95 mg/dL UREA NITROGEN (BUN) (test code = 3094-0) 14 mg/dL CREATININE (test code = 2160-0) 0.62 mg/dL eGFR NON-AFR. [place] (test code = 80263-0) 132 mL/min/1.73m2 eGFR (test code = 22237-9) 153 mL/min/1.73m2 BUN/CREATININE RATIO (test code = 3097-3) NOT APPLICABLE (calc) SODIUM (test code = 2951-2) 139 mmol/L POTASSIUM (test code = 2823-3) 4.7 mmol/L CHLORIDE (test code = 2075-0) 103 mmol/L CARBON DIOXIDE (test code = 8-9) 26 mmol/L CALCIUM (test code = 46597-7) 10.0 mg/dL PROTEIN, TOTAL (test code = 2885-2) 6.7 g/dL ALBUMIN (test code = 1751-7) 4.5 g/dL GLOBULIN (test code = 62423-3) 2.2 g/dL(calc) ALBUMIN/GLOBULIN RATIO (test code = 1759-0) 2.0 (calc) BILIRUBIN, TOTAL (test code = 1975-2) 0.3 mg/dL ALKALINE PHOSPHATASE (test code = 6768-6) 49 U/L AST (test code = 1920-8) 42 U/L ALT (test code = 1742-6) 70 U/L Elliot WestVxrdluWSG8478-71-64 00:00:00* Test Item Value Reference Range Interpretation Comme allyn TSH (test code = 3016-3) 2.21 mIU/L Elliot WestTESTOSTERONE, TOTAL, LC/MS/[id number] 00:00:00* Test Item Value Reference Range Interpretation Comme nts TESTOSTERONE, TOTAL, MS (kathy t code = 2986-8) 32 ng/dL Elliot WestCBC (INCLUDES DIFF/PLT)2020-06-24 00:00:00* Test Item Value Reference Range Interpretation Comme nts WHITE BLOOD CELL COUNT (test code = 6690-2) 10.0 Thousand/uL RED BLOOD CELL COUNT (test code = 789-8) 4.57 Million/uL HEMOGLOBIN (test code = 718-7) 13.9 g/dL HEMATOCRIT (test code = 4544-3) 40.6 % MCV (test code = 787-2) 88.8 fL MCH (test code = 785-6) 30.4 pg MCHC (test code = 786-4) 34.2 g/dL RDW (test code = 788-0) 12.3 % PLATELET COUNT (test code = 777-3) 359 Thousand/uL MPV (test code = 776-5) 10.9 fL ABSOLUTE NEUTROPHILS (test code = 751-8) 6100 cells/uL ABSOLUTE BAND NEUTROPHILS (test code = 55827-4) DNR cells/uL ABSOLUTE METAMYELOCYTES (test code = 65195-9) DNR cells/uL ABSOLUTE MYELOCYTES (test code = 90295-2) DNR cells/uL ABSOLUTE PROMYELOCYTES (test code = 33983-3) DNR cells/uL ABSOLUTE LYMPHOCYTES (test code = 731-0) 3130 cells/uL ABSOLUTE MONOCYTES (test code = 742-7) 630 cells/uL ABSOLUTE EOSINOPHILS (test code = 711-2) 100 cells/uL ABSOLUTE BASOPHILS (test code = 704-7) 40 cells/uL ABSOLUTE BLASTS (test code = 11494-0) DNR cells/uL ABSOLUTE NUCLEATED RBC (test code = 59297-4) DNR cells/uL NEUTROPHILS (test code = 770-8) 61 % BAND NEUTROPHILS (test code = 764-1) DNR % METAMYELOCYTES (test code = 740-1) DNR % MYELOCYTES (test code = 749-2) DNR % PROMYELOCYTES (test code = 783-1) DNR % LYMPHOCYTES (test code = 736-9) 31.3 % REACTIVE LYMPHOCYTES (test code = 26487-2) DNR % MONOCYTES (test code = 5905-5) 6.3 % EOSINOPHILS (test code = 713-8) 1.0 % BASOPHILS (test code = 706-2) 0.4 % BLASTS (test code = 709-6) DNR % NUCLEATED RBC (test code = 68611-2) DNR /100WBC COMMENT(S) (test code = 8251-1) DNR Elliot WestFSH AND [id number] 00:00:00* Test Item Value Reference Range Interpretation Comme nts FSH (test code = 59619-0) 7.9 mIU/mL LH (test code = 90336-2) 9.4 mIU/mL Elliot WestYvqtsqMKJUCZZOY5376-93-99 00:00:00* Test Item Value Reference Range Interpretation Comme nts PROLACTIN (test code = 2842-3) 6.6 ng/mL Elliot WestDHEA, LC/MS/[id number] 00:00:00* Test Item Value Reference Range Interpretation Comme nts DHEA, UNCONJUGATED (test cod e = 2196-4) 224 ng/dL Elliot WestHEMOGLOBIN [id number] 00:00:00* Test Item Value Reference Range Interpretation Comme nts HEMOGLOBIN A1c (test code = 4548-4) 5.7 %oftotalHgb Elliot WestCOMPREHENSIVE METABOLIC [id number] 00:00:00* Test Item Value Reference Range Interpretation Comme nts GLUCOSE (test code = 2345-7) 95 mg/dL UREA NITROGEN (BUN) (test code = 3094-0) 14 mg/dL CREATININE (test code = 2160-0) 0.62 mg/dL eGFR NON-AFR. [place] (test code = 93586-1) 132 mL/min/1.73m2 eGFR (test code = 19051-3) 153 mL/min/1.73m2 BUN/CREATININE RATIO (test code = 3097-3) NOT APPLICABLE (calc) SODIUM (test code = 2951-2) 139 mmol/L POTASSIUM (test code = 2823-3) 4.7 mmol/L CHLORIDE (test code = 2075-0) 103 mmol/L CARBON DIOXIDE (test code = 8-9) 26 mmol/L CALCIUM (test code = 84521-9) 10.0 mg/dL PROTEIN, TOTAL (test code = 2885-2) 6.7 g/dL ALBUMIN (test code = 1751-7) 4.5 g/dL GLOBULIN (test code = 44088-1) 2.2 g/dL(calc) ALBUMIN/GLOBULIN RATIO (test code = 1759-0) 2.0 (calc) BILIRUBIN, TOTAL (test code = 1975-2) 0.3 mg/dL ALKALINE PHOSPHATASE (test code = 6768-6) 49 U/L AST (test code = 1920-8) 42 U/L ALT (test code = 1742-6) 70 U/L Elliot [id number] 00:00:00* Test Item Value Reference Range Interpretation Comme nts TSH (test code = 3016-3) 2.21 mIU/L Elliot WestTESTOSTERONE, TOTAL, LC/MS/[id number] 00:00:00* Test Item Value Reference Range Interpretation Comme nts TESTOSTERONE, TOTAL, MS (kathy t code = 2986-8) 32 ng/dL Elliot WestCBC (INCLUDES DIFF/PLT)2020-06-24 00:00:00* Test Item Value Reference Range Interpretation Comme nts WHITE BLOOD CELL COUNT (test code = 6690-2) 10.0 Thousand/uL RED BLOOD CELL COUNT (test code = 789-8) 4.57 Million/uL HEMOGLOBIN (test code = 718-7) 13.9 g/dL HEMATOCRIT (test code = 4544-3) 40.6 % MCV (test code = 787-2) 88.8 fL MCH (test code = 785-6) 30.4 pg MCHC (test code = 786-4) 34.2 g/dL RDW (test code = 788-0) 12.3 % PLATELET COUNT (test code = 777-3) 359 Thousand/uL MPV (test code = 776-5) 10.9 fL ABSOLUTE NEUTROPHILS (test code = 751-8) 6100 cells/uL ABSOLUTE BAND NEUTROPHILS (test code = 15331-5) DNR cells/uL ABSOLUTE METAMYELOCYTES (test code = 60332-4) DNR cells/uL ABSOLUTE MYELOCYTES (test code = 37176-1) DNR cells/uL ABSOLUTE PROMYELOCYTES (test code = 72597-5) DNR cells/uL ABSOLUTE LYMPHOCYTES (test code = 731-0) 3130 cells/uL ABSOLUTE MONOCYTES (test code = 742-7) 630 cells/uL ABSOLUTE EOSINOPHILS (test code = 711-2) 100 cells/uL ABSOLUTE BASOPHILS (test code = 704-7) 40 cells/uL ABSOLUTE BLASTS (test code = 74903-9) DNR cells/uL ABSOLUTE NUCLEATED RBC (test code = 09634-4) DNR cells/uL NEUTROPHILS (test code = 770-8) 61 % BAND NEUTROPHILS (test code = 764-1) DNR % METAMYELOCYTES (test code = 740-1) DNR % MYELOCYTES (test code = 749-2) DNR % PROMYELOCYTES (test code = 783-1) DNR % LYMPHOCYTES (test code = 736-9) 31.3 % REACTIVE LYMPHOCYTES (test code = 79845-1) DNR % MONOCYTES (test code = 5905-5) 6.3 % EOSINOPHILS (test code = 713-8) 1.0 % BASOPHILS (test code = 706-2) 0.4 % BLASTS (test code = 709-6) DNR % NUCLEATED RBC (test code = 46136-0) DNR /100WBC COMMENT(S) (test code = 8251-1) DNR FSH AND [id number] 00:00:00* Test Item Value Reference Range Interpretation Comme nts FSH (test code = 36747-8) 7.9 mIU/mL LH (test code = 44862-8) 9.4 mIU/mL [id number] 00:00:00* Test Item Value Reference Range Interpretation Comme nts PROLACTIN (test code = 2842-3) 6.6 ng/mL DHEA, LC/MS/[id number] 00:00:00* Test Item Value Reference Range Interpretation Comme nts DHEA, UNCONJUGATED (test cod e = 2196-4) 224 ng/dL HEMOGLOBIN [id number] 00:00:00* Test Item Value Reference Range Interpretation Comme nts HEMOGLOBIN A1c (test code = 4548-4) 5.7 %oftotalHgb COMPREHENSIVE METABOLIC [id number] 00:00:00* Test Item Value Reference Range Interpretation Comme nts GLUCOSE (test code = 2345-7) 95 mg/dL UREA NITROGEN (BUN) (test code = 3094-0) 14 mg/dL CREATININE (test code = 2160-0) 0.62 mg/dL eGFR NON-AFR. [place] (test code = 05180-3) 132 mL/min/1.73m2 eGFR (test code = 67962-3) 153 mL/min/1.73m2 BUN/CREATININE RATIO (test code = 3097-3) NOT APPLICABLE (calc) SODIUM (test code = 2951-2) 139 mmol/L POTASSIUM (test code = 2823-3) 4.7 mmol/L CHLORIDE (test code = 2075-0) 103 mmol/L CARBON DIOXIDE (test code = 8-9) 26 mmol/L CALCIUM (test code = 15214-7) 10.0 mg/dL PROTEIN, TOTAL (test code = 2885-2) 6.7 g/dL ALBUMIN (test code = 1751-7) 4.5 g/dL GLOBULIN (test code = 18633-3) 2.2 g/dL(calc) ALBUMIN/GLOBULIN RATIO (test code = 1759-0) 2.0 (calc) BILIRUBIN, TOTAL (test code = 1975-2) 0.3 mg/dL ALKALINE PHOSPHATASE (test code = 6768-6) 49 U/L AST (test code = 1920-8) 42 U/L ALT (test code = 1742-6) 70 U/L [id number] 00:00:00* Test Item Value Reference Range Interpretation Comme nts TSH (test code = 3016-3) 2.21 mIU/L TESTOSTERONE, TOTAL, LC/MS/[id number] 00:00:00* Test Item Value Reference Range Interpretation Comme nts TESTOSTERONE, TOTAL, MS (kathy t code = 2986-8) 32 ng/dL SARS-CoV-2 (COVID-19) by RT-PCR (HIGH RISK)2020-03-15 00:00:00* Test Item Value Reference Range Interpretation Comme nts SARS-CoV-2 INTERPRETATION (t est code = 14867) POSITIVE SOURCE (test code = 01505) NOT SPECIFIED Elliot Oconnor [id number]-VdJ-1 (COVID-19) by RT-PCR (HIGH RISK)2020-03-15 00:00:00* Test Item Value Reference Range Interpretation Comme nts SARS-CoV-2 INTERPRETATION (t est code = 39030) POSITIVE SOURCE (test code = 49139) NOT SPECIFIED Elliot Oconnor OamlrmISAO-AuZ-3 (COVID-19) by RT-PCR (HIGH RISK)2020-03-15 00:00:00* Test Item Value Reference Range Interpretation Comme nts SARS-CoV-2 INTERPRETATION (t est code = 15788) POSITIVE SOURCE (test code = 73947) NOT SPECIFIED GC, AMPLIFIED, [id number] 00:00:00* Test Item Value Reference Range Interpretation Comme nts GONORRHEA, TMA (test code = 59386) NEGATIVE Elliot Oconnor AustinCHLAMYDIA, AMPLIFIED, [id number] 00:00:00* Test Item Value Reference Range Interpretation Comme nts CHLAMYDIA, TMA (test code = 92799) NEGATIVE Elliot F AustinGC, AMPLIFIED, [id number] 00:00:00* Test Item Value Reference Range Interpretation Comme nts GONORRHEA, TMA (test code = 45541) NEGATIVE Elliot F AustinCHLAMYDIA, AMPLIFIED, [id number] 00:00:00* Test Item Value Reference Range Interpretation Comme nts CHLAMYDIA, TMA (test code = 72925) NEGATIVE Elliot Oconnor AustinGC, AMPLIFIED, [id number] 00:00:00* Test Item Value Reference Range Interpretation Comme nts GONORRHEA, TMA (test code = 58709) NEGATIVE CHLAMYDIA, AMPLIFIED, [id number] 00:00:00* Test Item Value Reference Range Interpretation Comme nts CHLAMYDIA, TMA (test code = 44754) NEGATIVE VAGINAL PATHOGENS DNA [id number] 00:00:00* Test Item Value Reference Range Interpretation Comme nts MICHELE SPECIES (test code = 51102) NEGATIVE G. VAGINALIS (test code = 02627) NEGATIVE T. VAGINALIS (test code = 08892) NEGATIVE Elliot Oconnor AustinVAGINAL PATHOGENS DNA [id number] 00:00:00* Test Item Value Reference Range Interpretation Comme nts MICHELE SPECIES (test code = 96929) NEGATIVE G. VAGINALIS (test code = 26033) NEGATIVE T. VAGINALIS (test code = 59683) NEGATIVE Elliot F AustinVAGINAL PATHOGENS DNA [id number] 00:00:00* Test Item Value Reference Range Interpretation Comme nts MICHELE SPECIES (test code = 96762) NEGATIVE G. VAGINALIS (test code = 36718) NEGATIVE T. VAGINALIS (test code = 49937) NEGATIVE VAGINAL PATHOGENS DNA [id number] 00:00:00* Test Item Value Reference Range Interpretation Comme nts MICHELE SPECIES (test code = 75271) POSITIVE G. VAGINALIS (test code = 33134) NEGATIVE T. VAGINALIS (test code = 19787) NEGATIVE Elliot Oconnor AustinVAGINAL PATHOGENS DNA [id number] 00:00:00* Test Item Value Reference Range Interpretation Comme nts MICHELE SPECIES (test code = 37289) POSITIVE G. VAGINALIS (test code = 27579) NEGATIVE T. VAGINALIS (test code = 88540) NEGATIVE Elliot Oconnor AustinVAGINAL PATHOGENS DNA [id number] 00:00:00* Test Item Value Reference Range Interpretation Comme nts MICHELE SPECIES (test code = ) POSITIVE G. VAGINALIS (test code = 02999) NEGATIVE T. VAGINALIS (test code = 50116) NEGATIVE LIPID PANEL (REFL)2018-01-03 00:00:00* Test Item Value Reference Range Interpretation Comme nts CHOLESTEROL, TOTAL (test cod e = 2093-3) 128 mg/dL HDL CHOLESTEROL (test code = 2085-9) 48 mg/dL TRIGLYCERIDES (test code = 2571-8) 146 mg/dL LDL-CHOLESTEROL (test code = 08140-0) 57 mg/dL(calc) CHOL/HDLC RATIO (test code = 9830-1) 2.7 (calc) NON HDL CHOLESTEROL (test co de = 84791-3) 80 mg/dL(calc) Elliot Oconnor AustinLIPID PANEL (REFL)2018-01-03 00:00:00* Test Item Value Reference Range Interpretation Comme nts CHOLESTEROL, TOTAL (test cod e = 2093-3) 128 mg/dL HDL CHOLESTEROL (test code = 2085-9) 48 mg/dL TRIGLYCERIDES (test code = 2571-8) 146 mg/dL LDL-CHOLESTEROL (test code = 49888-4) 57 mg/dL(calc) CHOL/HDLC RATIO (test code = 9830-1) 2.7 (calc) NON HDL CHOLESTEROL (test co de = 64014-9) 80 mg/dL(calc) Elliot Oconnor AustinLIPID PANEL (REFL)2018-01-03 00:00:00* Test Item Value Reference Range Interpretation Comme nts CHOLESTEROL, TOTAL (test cod e = 2093-3) 128 mg/dL HDL CHOLESTEROL (test code = 2085-9) 48 mg/dL TRIGLYCERIDES (test code = 2571-8) 146 mg/dL LDL-CHOLESTEROL (test code = 41511-2) 57 mg/dL(calc) CHOL/HDLC RATIO (test code = 9830-1) 2.7 (calc) NON HDL CHOLESTEROL (test co de = 32289-3) 80 mg/dL(calc) COMPREHENSIVE METABOLIC [id number] 00:00:00* Test Item Value Reference Range Interpretation Comme nts GLUCOSE (test code = 2345-7) 90 mg/dL UREA NITROGEN (BUN) (test code = 3094-0) 14 mg/dL CREATININE (test code = 2160-0) 1.04 mg/dL eGFR NON-AFR. [place] (test code = 27737-7) DNR mL/min/1.73m2 eGFR (test code = 75889-8) DNR mL/min/1.73m2 BUN/CREATININE RATIO (test code = 3097-3) 13 (calc) SODIUM (test code = 2951-2) 141 mmol/L POTASSIUM (test code = 2823-3) 4.7 mmol/L CHLORIDE (test code = 2075-0) 102 mmol/L CARBON DIOXIDE (test code = 2027-9) 22 mmol/L CALCIUM (test code = 22252-5) 10.2 mg/dL PROTEIN, TOTAL (test code = 2885-2) 7.0 g/dL ALBUMIN (test code = 1751-7) 4.5 g/dL GLOBULIN (test code = 05012-2) 2.5 g/dL(calc) ALBUMIN/GLOBULIN RATIO (test code = 1759-0) 1.8 (calc) BILIRUBIN, TOTAL (test code = 1975-2) 0.3 mg/dL ALKALINE PHOSPHATASE (test code = 6768-6) 70 U/L AST (test code = 1920-8) 24 U/L ALT (test code = 1742-6) 35 U/L Elliot [id number] 00:00:00* Test Item Value Reference Range Interpretation Comme nts TSH (test code = 3016-3) 1.70 mIU/L Elliot WestCOMPREHENSIVE METABOLIC [id number] 00:00:00* Test Item Value Reference Range Interpretation Comme nts GLUCOSE (test code = 2345-7) 90 mg/dL UREA NITROGEN (BUN) (test code = 3094-0) 14 mg/dL CREATININE (test code = 2160-0) 1.04 mg/dL eGFR NON-AFR. [place] (test code = 97782-1) DNR mL/min/1.73m2 eGFR (test code = 92221-9) DNR mL/min/1.73m2 BUN/CREATININE RATIO (test code = 3097-3) 13 (calc) SODIUM (test code = 2951-2) 141 mmol/L POTASSIUM (test code = 2823-3) 4.7 mmol/L CHLORIDE (test code = 2075-0) 102 mmol/L CARBON DIOXIDE (test code = 8-9) 22 mmol/L CALCIUM (test code = 84588-8) 10.2 mg/dL PROTEIN, TOTAL (test code = 2885-2) 7.0 g/dL ALBUMIN (test code = 1751-7) 4.5 g/dL GLOBULIN (test code = 59317-0) 2.5 g/dL(calc) ALBUMIN/GLOBULIN RATIO (test code = 1759-0) 1.8 (calc) BILIRUBIN, TOTAL (test code = 1975-2) 0.3 mg/dL ALKALINE PHOSPHATASE (test code = 6768-6) 70 U/L AST (test code = 1920-8) 24 U/L ALT (test code = 1742-6) 35 U/L Elliot [id number] 00:00:00* Test Item Value Reference Range Interpretation Comme nts TSH (test code = 3016-3) 1.70 mIU/L Elliot WestCOMPREHENSIVE METABOLIC [id number] 00:00:00* Test Item Value Reference Range Interpretation Comme nts GLUCOSE (test code = 2345-7) 90 mg/dL UREA NITROGEN (BUN) (test code = 3094-0) 14 mg/dL CREATININE (test code = 2160-0) 1.04 mg/dL eGFR NON-AFR. [place] (test code = 39768-7) DNR mL/min/1.73m2 eGFR (test code = 88763-5) DNR mL/min/1.73m2 BUN/CREATININE RATIO (test code = 3097-3) 13 (calc) SODIUM (test code = 2951-2) 141 mmol/L POTASSIUM (test code = 2823-3) 4.7 mmol/L CHLORIDE (test code = 2075-0) 102 mmol/L CARBON DIOXIDE (test code = 2027-9) 22 mmol/L CALCIUM (test code = 47380-5) 10.2 mg/dL PROTEIN, TOTAL (test code = 2885-2) 7.0 g/dL ALBUMIN (test code = 1751-7) 4.5 g/dL GLOBULIN (test code = 81846-1) 2.5 g/dL(calc) ALBUMIN/GLOBULIN RATIO (test code = 1759-0) 1.8 (calc) BILIRUBIN, TOTAL (test code = 1975-2) 0.3 mg/dL ALKALINE PHOSPHATASE (test code = 6768-6) 70 U/L AST (test code = 1920-8) 24 U/L ALT (test code = 1742-6) 35 U/L [id number] 00:00:00* Test Item Value Reference Range Interpretation Comme nts TSH (test code = 3016-3) 1.70 mIU/L CBC (INCLUDES DIFF/PLT)2017-12-25 00:00:00* Test Item Value Reference Range Interpretation Comme nts WHITE BLOOD CELL COUNT (test code = 6690-2) 10.8 Thousand/uL RED BLOOD CELL COUNT (test code = 789-8) 5.01 Million/uL HEMOGLOBIN (test code = 718-7) 15.0 g/dL HEMATOCRIT (test code = 4544-3) 44.7 % MCV (test code = 787-2) 89.2 fL MCH (test code = 785-6) 29.9 pg MCHC (test code = 786-4) 33.6 g/dL RDW (test code = 788-0) 12.1 % PLATELET COUNT (test code = 777-3) 345 Thousand/uL MPV (test code = 776-5) 11.5 fL ABSOLUTE NEUTROPHILS (test code = 751-8) 6901 cells/uL ABSOLUTE BAND NEUTROPHILS (test code = 58726-2) DNR cells/uL ABSOLUTE METAMYELOCYTES (test code = 30884-1) DNR cells/uL ABSOLUTE MYELOCYTES (test code = 16133-7) DNR cells/uL ABSOLUTE PROMYELOCYTES (test code = 14896-9) DNR cells/uL ABSOLUTE LYMPHOCYTES (test code = 731-0) 2970 cells/uL ABSOLUTE MONOCYTES (test code = 742-7) 691 cells/uL ABSOLUTE EOSINOPHILS (test code = 711-2) 184 cells/uL ABSOLUTE BASOPHILS (test code = 704-7) 54 cells/uL ABSOLUTE BLASTS (test code = 00354-2) DNR cells/uL ABSOLUTE NUCLEATED RBC (test code = 24107-8) DNR cells/uL NEUTROPHILS (test code = 770-8) 63.9 % BAND NEUTROPHILS (test code = 764-1) DNR % METAMYELOCYTES (test code = 740-1) DNR % MYELOCYTES (test code = 749-2) DNR % PROMYELOCYTES (test code = 783-1) DNR % LYMPHOCYTES (test code = 736-9) 27.5 % REACTIVE LYMPHOCYTES (test code = 73034-1) DNR % MONOCYTES (test code = 5905-5) 6.4 % EOSINOPHILS (test code = 713-8) 1.7 % BASOPHILS (test code = 706-2) 0.5 % BLASTS (test code = 709-6) DNR % NUCLEATED RBC (test code = 05267-0) DNR /100WBC COMMENT(S) (test code = 8251-1) DNR Elliot Oconnor AustinHEMOGLOBIN [id number] 00:00:00* Test Item Value Reference Range Interpretation Comme nts HEMOGLOBIN A1c (test code = 4548-4) 5.3 %oftotalHgb Elliot Oconnor AustinCBC (INCLUDES DIFF/PLT)2017-12-25 00:00:00* Test Item Value Reference Range Interpretation Comme nts WHITE BLOOD CELL COUNT (test code = 6690-2) 10.8 Thousand/uL RED BLOOD CELL COUNT (test code = 789-8) 5.01 Million/uL HEMOGLOBIN (test code = 718-7) 15.0 g/dL HEMATOCRIT (test code = 4544-3) 44.7 % MCV (test code = 787-2) 89.2 fL MCH (test code = 785-6) 29.9 pg MCHC (test code = 786-4) 33.6 g/dL RDW (test code = 788-0) 12.1 % PLATELET COUNT (test code = 777-3) 345 Thousand/uL MPV (test code = 776-5) 11.5 fL ABSOLUTE NEUTROPHILS (test code = 751-8) 6901 cells/uL ABSOLUTE BAND NEUTROPHILS (test code = 43131-9) DNR cells/uL ABSOLUTE METAMYELOCYTES (test code = 49535-3) DNR cells/uL ABSOLUTE MYELOCYTES (test code = 17904-2) DNR cells/uL ABSOLUTE PROMYELOCYTES (test code = 19452-2) DNR cells/uL ABSOLUTE LYMPHOCYTES (test code = 731-0) 2970 cells/uL ABSOLUTE MONOCYTES (test code = 742-7) 691 cells/uL ABSOLUTE EOSINOPHILS (test code = 711-2) 184 cells/uL ABSOLUTE BASOPHILS (test code = 704-7) 54 cells/uL ABSOLUTE BLASTS (test code = 99139-7) DNR cells/uL ABSOLUTE NUCLEATED RBC (test code = 11908-3) DNR cells/uL NEUTROPHILS (test code = 770-8) 63.9 % BAND NEUTROPHILS (test code = 764-1) DNR % METAMYELOCYTES (test code = 740-1) DNR % MYELOCYTES (test code = 749-2) DNR % PROMYELOCYTES (test code = 783-1) DNR % LYMPHOCYTES (test code = 736-9) 27.5 % REACTIVE LYMPHOCYTES (test code = 83061-8) DNR % MONOCYTES (test code = 5905-5) 6.4 % EOSINOPHILS (test code = 713-8) 1.7 % BASOPHILS (test code = 706-2) 0.5 % BLASTS (test code = 709-6) DNR % NUCLEATED RBC (test code = 86112-1) DNR /100WBC COMMENT(S) (test code = 8251-1) DNR Elliot Oconnor AustinHEMOGLOBIN [id number] 00:00:00* Test Item Value Reference Range Interpretation Comme nts HEMOGLOBIN A1c (test code = 4548-4) 5.3 %oftotalHgb Elliot Oconnor AustinCBC (INCLUDES DIFF/PLT)2017-12-25 00:00:00* Test Item Value Reference Range Interpretation Comme nts WHITE BLOOD CELL COUNT (test code = 6690-2) 10.8 Thousand/uL RED BLOOD CELL COUNT (test code = 789-8) 5.01 Million/uL HEMOGLOBIN (test code = 718-7) 15.0 g/dL HEMATOCRIT (test code = 4544-3) 44.7 % MCV (test code = 787-2) 89.2 fL MCH (test code = 785-6) 29.9 pg MCHC (test code = 786-4) 33.6 g/dL RDW (test code = 788-0) 12.1 % PLATELET COUNT (test code = 777-3) 345 Thousand/uL MPV (test code = 776-5) 11.5 fL ABSOLUTE NEUTROPHILS (test code = 751-8) 6901 cells/uL ABSOLUTE BAND NEUTROPHILS (test code = 33976-6) DNR cells/uL ABSOLUTE METAMYELOCYTES (test code = 43459-0) DNR cells/uL ABSOLUTE MYELOCYTES (test code = 17871-7) DNR cells/uL ABSOLUTE PROMYELOCYTES (test code = 10697-6) DNR cells/uL ABSOLUTE LYMPHOCYTES (test code = 731-0) 2970 cells/uL ABSOLUTE MONOCYTES (test code = 742-7) 691 cells/uL ABSOLUTE EOSINOPHILS (test code = 711-2) 184 cells/uL ABSOLUTE BASOPHILS (test code = 704-7) 54 cells/uL ABSOLUTE BLASTS (test code = 30421-8) DNR cells/uL ABSOLUTE NUCLEATED RBC (test code = 97775-9) DNR cells/uL NEUTROPHILS (test code = 770-8) 63.9 % BAND NEUTROPHILS (test code = 764-1) DNR % METAMYELOCYTES (test code = 740-1) DNR % MYELOCYTES (test code = 749-2) DNR % PROMYELOCYTES (test code = 783-1) DNR % LYMPHOCYTES (test code = 736-9) 27.5 % REACTIVE LYMPHOCYTES (test code = 15317-0) DNR % MONOCYTES (test code = 5905-5) 6.4 % EOSINOPHILS (test code = 713-8) 1.7 % BASOPHILS (test code = 706-2) 0.5 % BLASTS (test code = 709-6) DNR % NUCLEATED RBC (test code = 81842-4) DNR /100WBC COMMENT(S) (test code = 8251-1) DNR HEMOGLOBIN [id number] 00:00:00* Test Item Value Reference Range Interpretation Comme allyn HEMOGLOBIN A1c (test code = 4548-4) 5.3 %oftotalHgb FSH + LH [id number] 00:00:00* Test Item Value Reference Range Interpretation Comme nts FOLLICLE STIM HORMONE (test code = 2700) 5.5 IU/L LUTEINIZING HORMONE (test co de = 2776) 11.2 IU/L Elliot WestDHEA [id number] 00:00:00* Test Item Value Reference Range Interpretation Comme nts DHEA SULFATE (test code = 4225) 235 UG/DL Elliot WestLIPID [id number] 00:00:00* Test Item Value Reference Range Interpretation Comme nts CHOLESTEROL (test code = 2210) 141 MG/DL TRIGLYCERIDES (test code = 2232) 147 MG/DL HDL CHOLESTEROL (test code = 2220) 52 MG/DL CALC LDL CHOL (test code = 2237) 60 MG/DL RISK RATIO LDL/HDL (test cod e = 2238) 1.15 RATIO Elliot WestHEMOGLOBIN [id number] 00:00:00* Test Item Value Reference Range Interpretation Comme allyn HEMOGLOBIN A1c (test code = 38852) 6.1 % Elliot [id number] 00:00:00* Test Item Value Reference Range Interpretation Comme nts TSH (test code = 2821) 1.4 UIU/ML Elliot [id number] 00:00:00* Test Item Value Reference Range Interpretation Comme nts TESTOSTERONE (test code = 2830) 68 NG/DL Elliot [id number] 00:00:00* Test Item Value Reference Range Interpretation Comme nts PROLACTIN (test code = 2800) 11.7 NG/ML Elliot WestFSH + LH [id number] 00:00:00* Test Item Value Reference Range Interpretation Comme nts FOLLICLE STIM HORMONE (test code = 2700) 5.5 IU/L LUTEINIZING HORMONE (test co de = 2776) 11.2 IU/L Elliot WestDHEA [id number] 00:00:00* Test Item Value Reference Range Interpretation Comme nts DHEA SULFATE (test code = 4225) 235 UG/DL Elliot WestLIPID [id number] 00:00:00* Test Item Value Reference Range Interpretation Comme nts CHOLESTEROL (test code = 2210) 141 MG/DL TRIGLYCERIDES (test code = 2232) 147 MG/DL HDL CHOLESTEROL (test code = 2220) 52 MG/DL CALC LDL CHOL (test code = 2237) 60 MG/DL RISK RATIO LDL/HDL (test cod e = 2238) 1.15 RATIO Elliot WestHEMOGLOBIN [id number] 00:00:00* Test Item Value Reference Range Interpretation Comme allyn HEMOGLOBIN A1c (test code = 75435) 6.1 % Elliot [id number] 00:00:00* Test Item Value Reference Range Interpretation Comme allyn TSH (test code = 2821) 1.4 UIU/ML Elliot [id number] 00:00:00* Test Item Value Reference Range Interpretation Comme allyn TESTOSTERONE (test code = 2830) 68 NG/DL Elliot [id number] 00:00:00* Test Item Value Reference Range Interpretation Comme allyn PROLACTIN (test code = 2800) 11.7 NG/ML FSH + LH [id number] 00:00:00* Test Item Value Reference Range Interpretation Comme nts FOLLICLE STIM HORMONE (test code = 2700) 5.5 IU/L LUTEINIZING HORMONE (test co de = 2776) 11.2 IU/L DHEA [id number] 00:00:00* Test Item Value Reference Range Interpretation Comme nts DHEA SULFATE (test code = 4225) 235 UG/DL LIPID [id number] 00:00:00* Test Item Value Reference Range Interpretation Comme nts CHOLESTEROL (test code = 2210) 141 MG/DL TRIGLYCERIDES (test code = 2232) 147 MG/DL HDL CHOLESTEROL (test code = 2220) 52 MG/DL CALC LDL CHOL (test code = 2237) 60 MG/DL RISK RATIO LDL/HDL (test cod e = 2238) 1.15 RATIO HEMOGLOBIN [id number] 00:00:00* Test Item Value Reference Range Interpretation Comme nts HEMOGLOBIN A1c (test code = 67545) 6.1 % [id number] 00:00:00* Test Item Value Reference Range Interpretation Comme nts TSH (test code = 2821) 1.4 UIU/ML [id number] 00:00:00* Test Item Value Reference Range Interpretation Comme nts TESTOSTERONE (test code = 2830) 68 NG/DL [id number] 00:00:00* Test Item Value Reference Range Interpretation Comme nts PROLACTIN (test code = 2800) 11.7 NG/ML Elliot West Notes Date/Time Note Provider Source Elliot West [facility]2025-03-31 00:00:00 Elliot Schmitt [facility]"
--- NOTE | 2024-08-31 13:03 | ER ---
Nurse's Notes [facility] Name: Michelle Pastor Age: 24 yrs Sex: Female : 2000 Arrival Date: 08/31/2024 Time: 12:10 Bed 16 Private MD: Diagnosis: Chlorine gas exposure Presentation: 08/31 12:37 Chief complaint: Patient states: exposed to chlorine gas 3-4 hours ago and now c/o kj2 headache and achiness to bilateral upper legs. Coronavirus screen: Client denies travel out of the [place] in the last 14 days. Ebola Screen: Patient denies exposure to infectious person. Patient denies travel to an Ebola-affected area in the 21 days before illness onset. Initial Sepsis Screen: Does the patient meet any 2 criteria? No. Patient's initial sepsis screen is negative. Does the patient have a suspected source of infection? No. Patient's initial sepsis screen is negative. Risk Assessment: Do you want to hurt yourself or someone else? Patient reports no desire to harm self or others. Onset of symptoms was August 31, 2024. 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 - Social history:: Smoking status: Patient denies any tobacco usage or history of. Screenin:41 Abuse screen: Denies threats or abuse. Denies injuries from another. Nutritional kj2 screening: No deficits noted. Tuberculosis screening: Never had TB. Assessment: 12:41 General: Appears in no apparent distress. comfortable, Behavior is calm, cooperative. kj2 Neuro: Level of Consciousness is awake, alert, obeys commands, Oriented to person, place, time, situation. Respiratory: Airway is patent Respiratory effort is even, unlabored, Respiratory pattern is regular, symmetrical. EENT: Throat is clear. Derm: Skin is intact, is healthy with good turgor, Skin is dry, Skin is pink, warm \T\ dry. normal. Vital Signs: 12:37 BP 131 / 88; Pulse 86; Resp 16; Temp 98.2(TE); Pulse Ox 99% on R/A; Weight 99.79 kg; kj2 Height 4 ft. 8 in. ; Pain 4/10; 12:37 Body Mass Index 49.32 (99.79 kg, 142.24 cm) kj2 12:37 Pain Scale: Adult kj2 ED Course: 12:15 Patient arrived in ED. cj3 12:33 Bronwyn Russell MD is Attending Physician. sp3 12:39 Triage completed. kj2 12:39 Arm band placed on right wrist. kj2 12:41 Patient has correct armband on for positive identification. kj2 13:20 Oriana Burleson, RN is Primary Nurse. kj2 Administered Medications: No medications were administered Medication: 12:41 VIS not applicable for this client. kj2 Outcome: 13:02 Discharge ordered by . sp3 13:20 Patient left the ED. kj2 Signatures: Bronwyn Russell MD MD sp3 Oriana Burleson, RN RN kj2 Berta Brown cj3
--- NOTE | 2024-08-31 13:03 | EDPHYS ---
Physician Documentation [facility] Name: Michelle Pastor Age: 24 yrs Sex: Female : 2000 Arrival Date: 08/31/2024 Time: 12:10 Bed 16 Private MD: ED Physician Bronwyn Russell HPI: 08/31 13:00 This 24 yrs old Female presents to ER via Ambulatory with complaints of sp3 Chemical Exposure. 13:00 24-year-old female with history of migraine headaches presents with mild headache and sp3 slight cough due to chemical irritation secondary to chlorine gas pill at local [employer] Patient was in the block over states she had mild exposure. No direct exposure reported. Patient having no chest pain or shortness of breath. ROS otherwise negative.. 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 - Social history:: Smoking status: Patient denies any tobacco usage or history of. ROS: 13:00 Constitutional: Negative for fever, chills, and weight loss, Eyes: Negative for injury, sp3 pain, redness, and discharge, Neck: Negative for injury, pain, and swelling, Cardiovascular: Negative for chest pain, palpitations, and edema, Abdomen/GI: Negative for abdominal pain, nausea, vomiting, diarrhea, and constipation, Back: Negative for injury and pain, MS/Extremity: Negative for injury and deformity, Skin: Negative for injury, rash, and discoloration, Psych: Negative for depression, anxiety, suicide ideation, homicidal ideation, and hallucinations, Allergy/Immunology: Negative for hives, rash, and allergies, Endocrine: Negative for neck swelling, polydipsia, polyuria, polyphagia, and marked weight changes, 13:00 All other systems are negative, Exam: 13:00 Constitutional: This is a well developed, well nourished patient who is awake, alert, sp3 and in no acute distress. Head/Face: Normocephalic, atraumatic. Eyes: Pupils equal round and reactive to light, extra-ocular motions intact. Lids and lashes normal. Conjunctiva and sclera are non-icteric and not injected. Cornea within normal limits. Periorbital areas with no swelling, redness, or edema. ENT: Nares patent. No nasal discharge, no septal abnormalities noted. External auditory canals are clear. Oropharynx with no redness, swelling, or masses, exudates, or evidence of obstruction, uvula midline. Mucous membranes moist. Neck: Trachea midline, no thyromegaly or masses palpated, and no cervical lymphadenopathy. Supple, full range of motion without nuchal rigidity, or vertebral point tenderness. No Meningismus. Chest/axilla: Normal chest wall appearance and motion. Nontender with no deformity. No lesions are appreciated. Cardiovascular: Regular rate and rhythm with a normal S1 and S2. No gallops, murmurs, or rubs. Normal PMI, no JVD. No pulse deficits. Respiratory: Lungs have equal breath sounds bilaterally, clear to auscultation and percussion. No rales, rhonchi or wheezes noted. No increased work of breathing, no retractions or nasal flaring. Abdomen/GI: Soft, non-tender, with normal bowel sounds. No distension or tympany. No guarding or rebound. No evidence of tenderness throughout. Back: No spinal tenderness. No costovertebral tenderness. Full range of motion. Skin: Warm, dry with normal turgor. Normal color with no rashes, no lesions, and no evidence of cellulitis. MS/ Extremity: Pulses equal, no cyanosis. Neurovascular intact. Full, normal range of motion. Neuro: Awake and alert, GCS 15, oriented to person, place, time, and situation. Cranial nerves II-XII grossly intact. Motor strength 5/5 in all extremities. Sensory grossly intact. Cerebellar exam normal. Normal gait. Psych: Awake, alert, with orientation to person, place and time. Behavior, mood, and affect are within normal limits. Vital Signs: 12:37 BP 131 / 88; Pulse 86; Resp 16; Temp 98.2(TE); Pulse Ox 99% on R/A; Weight 99.79 kg; kj2 Height 4 ft. 8 in. ; Pain 4/10; 12:37 Body Mass Index 49.32 (99.79 kg, 142.24 cm) kj2 12:37 Pain Scale: Adult kj2 MDM: 12:36 Medical Screening Exam initiated sp3 13:01 Data reviewed: vital signs, nurses notes. ED course: 24-year-old female with mild sp3 chlorine exposure. Vital signs are normal and pulse oxygenation is 99% on room air. Breathing is normal and unlabored. Breath sounds are clear. No further intervention indicated in the ED.. Administered Medications: No medications were administered Disposition Summary: 08/31/24 13:02 Discharge Ordered Notes: Location: Home sp3 Condition: Stable sp3 Diagnosis - Chlorine gas exposure sp3 Followup: sp3 - With: Private Physician - When: Upon discharge from the Emergency Department - Reason: Continuance of care Discharge Instructions: - Discharge Summary Sheet sp3 - Chemical Inhalation Injury, Adult sp3 Forms: - Medication Reconciliation Form sp3 - Antibiotic Education sp3 - Prescription Opioid Use sp3 - Patient Portal Instructions sp3 - Leadership Thank You Letter sp3 Signatures: Bronwyn Russell MD MD sp3 Oriana Burleson RN RN kj2
[2024-08-31 13:25] VITALS: BP 131/88; TEMP 98.2; O2SAT 99
== END 2024-08-31 13:20 | disposition home or self-care (01) ==
LOC: ER 12:10
DX: T59.4X1A Toxic effect of chlorine gas, accidental (unintentional), initial encounter (principal)